=== PATIENT | male | born 1995 | race African-American/Black ===

== ENCOUNTER 2023-02-05 21:01 | Emergency (ER) | payer OTHER ==
[2023-02-05 21:06] VITALS: BP 112/61; PULSE 70; RESP 18; TEMP 98.1; BMI 24.0
[2023-02-05] MEDS ORDERED: MAG HYDROX/AL HYDROX/SIMETH 30 ML UNIT-DOSE CUP PO ONE (22:31)
[2023-02-05] MEDS ORDERED: FAMOTIDINE 10 MG TABLET PO ONE (22:31)
[2023-02-05] MEDS ORDERED: FAMOTIDINE 10 MG TABLET ONE (23:21)
[2023-02-05] MEDS ORDERED: MAG HYDROX/AL HYDROX/SIMETH 30 ML UNIT-DOSE CUP ONE (23:21)
[2023-02-05 23:44] LABS: BASO % 1.3 % (0-2.0); EOS % 0.8 % (0-4.5); HEMATOCRIT 43.8 % (35.4-49); HEMOGLOBIN 14.7 GM/dL (11.7-16.9); LYMPH % 52.8 % (8-40); MCH 29.7 pg (25.7-33.7); MCHC 33.5 g/dl (32.0-35.9); MEAN CELL VOLUME 88.9 fl (80-96); MEAN PLT VOLUME 7.3 fl (7.5-11.1); MONO % 10.8 % (3.8-10.2); NEUT % 34.3 % (42.8-82.8); PLATELET COUNT 295 10^3/uL (134-434); RBC 4.93 M/mm3 (4.00-5.60); RDW 13.5 % (11.9-15.9); WHITE BLOOD COUNT 4.5 K/mm3 (4.0-10.0)
[2023-02-06 00:04] LABS: CALCIUM 9.4 mg/dL (8.5-10.1)
[2023-02-06 00:06] LABS: ALBUMIN 3.9 g/dl (3.4-5.0); MAGNESIUM 2.4 mg/dL (1.8-2.4)
[2023-02-06 00:08] LABS: CREATININE 1.2 mg/dL (0.55-1.3)
[2023-02-06 00:10] LABS: BILIRUBIN,TOTAL 0.4 mg/dL (0.2-1); TOT PROT 7.3 g/dl (6.4-8.2)
[2023-02-06 00:26] LABS: BLOOD UREA NITROGEN 11.6 mg/dL (7-18)
== END 2023-02-06 01:25 | disposition home or self-care (01) ==
LOC: JER 21:01
DX: E16.2 Hypoglycemia, unspecified (principal); R10.13 Epigastric pain
CPT/HCPCS: 36415; 76705-TC; 80053; 82962; 83690; 83735; 85025; 99284-25